=== PATIENT | female | born 1950 | race Caucasian/White ===

== ENCOUNTER → 2017-10-02 17:03 | Outpatient (CLI) | payer MEDICARE ==
[~2017-10-02 17:03] MED LIST: ASPIRIN EC81 M1 PO; CALCIUM/MG/ZINC PO; CENTRUM SILVER1 EAC3 PO; FISH OIL 1,0001 CA1 PO; HYDROCODONE-APA1 TAB PO; IBUPROFEN200 MG PO; POTASSIUM99 M1 PO; VITAMIN B COMPL1 TAB PO
[2017-10-23 06:38] VITALS: BMI 46.7
== END | disposition home or self-care (01) ==
LOC: D.MRI 17:03
DX: M25.561 Pain in right knee (principal)

== ENCOUNTER 2017-10-03 10:37 | Outpatient (CLI) | payer MEDICARE ==
[2017-10-03] MEDS ORDERED: ASPIRIN EC81 M1 PO (13:38)
[2017-10-03] MEDS ORDERED: CENTRUM SILVER1 EAC3 PO (13:39)
[2017-10-03] MEDS ORDERED: VITAMIN B COMPL1 TAB PO (13:39)
[2017-10-03 14:12] LABS: BASOPHILS 0.3 % (0-2); EOSINOPHILS 9.1 % (0-7); HEMATOCRIT 38.2 % (36.0-48.0); HEMOGLOBIN 12.7 g/dL (12-16); IMMATURE GRANULOCYTES 0.4 % (0-5); LYMPHOCYTES 27.3 % (15-50); MCH 29.3 pg (26.0-34.0); MCHC 33.2 g/dL (31.0-37.0); MCV 88.2 fL (80.0-100.0); MEAN PLATELET VOLUME 11.4 fL (7.4-10.4); MONOCYTES 6.8 % (2-11); NEUTROPHILS 56.1 % (40-80); PLATELET COUNT 203 10x3/uL (130-400); RBC 4.33 10x6/uL (4.00-5.40); RDW 14.2 % (11.5-14.5); WBC 12.6 10x3/uL (4.8-10.8)
[2017-10-03 14:23] LABS: ANION GAP 13.6 mmol/L (8-16); CALCIUM 8.4 mg/dL (8.5-10.1); CARBON DIOXIDE 22.2 mmol/L (21.0-32.0); CREATININE - SERUM 1.3 mg/dL (0.6-1.3); POTASSIUM - SERUM 3.8 mmol/L (3.5-5.1)
[2017-10-22] MEDS ORDERED: POTASSIUM99 M1 PO (10:22)
[2017-10-22] MEDS ORDERED: CALCIUM/MG/ZINC PO (10:23)
[2017-10-22] MEDS ORDERED: IBUPROFEN200 MG PO (10:24)
[2017-10-22] MEDS ORDERED: FISH OIL 1,0001 CA1 PO (10:24)
[2017-10-23 06:38] VITALS: BMI 46.7
== END 2017-10-03 10:38 | disposition home or self-care (01) ==
LOC: D.OPS 10:37 → EDSTATUS 10-04 09:00 → D.OPS 10-04 10:00
PROVIDERS: Surgery
DX: K80.80 Other cholelithiasis without obstruction (principal); Z01.810 Encounter for preprocedural cardiovascular examination; Z01.811 Encounter for preprocedural respiratory examination; Z01.812 Encounter for preprocedural laboratory examination; Z53.9 Procedure and treatment not carried out, unspecified reason

== ENCOUNTER 2017-10-23 06:05 | Day surgery (SDC) | payer MEDICARE ==
[2017-10-22 10:50] LABS: BASOPHILS 0.1 % (0-2); EOSINOPHILS 2.4 % (0-7); HEMATOCRIT 41.7 % (36.0-48.0); IMMATURE GRANULOCYTES 0.8 % (0-5); MCH 29.5 pg (26.0-34.0); MCHC 33.6 g/dL (31.0-37.0); MCV 87.8 fL (80.0-100.0); MEAN PLATELET VOLUME 11.1 fL (7.4-10.4); MONOCYTES 5.9 % (2-11); NEUTROPHILS 71.8 % (40-80); RBC 4.75 10x6/uL (4.00-5.40); RDW 14.1 % (11.5-14.5); WBC 17.9 10x3/uL (4.8-10.8)
[2017-10-22 10:51] LABS: PLATELET COUNT 267 10x3/uL (130-400)
[2017-10-22 10:59] LABS: ANION GAP 16.6 mmol/L (8-16); CALCIUM 8.6 mg/dL (8.5-10.1); CARBON DIOXIDE 20.3 mmol/L (21.0-32.0); CREATININE - SERUM 1.2 mg/dL (0.6-1.3); POTASSIUM - SERUM 3.9 mmol/L (3.5-5.1)
[~2017-10-23] VITALS: Ht 157.5 cm; Wt 115.7 kg
--- NOTE | ~2017-10-23 | OP ---
PATIENT NAME: LOPEZ MATT MEDICAL RECORD: [id number] :50 LOCATION:D.OPS ADMISSION DATE: SURGEON: NIMESH LEMONS MD DATE OF OPERATION: 10/23/2017 PREOPERATIVE DIAGNOSES: 1. Gallstones. 2. Asthma. 3. Morbid obesity. POSTOPERATIVE DIAGNOSES: 1. Gallstones. 2. Asthma. 3. Morbid obesity. PROCEDURE: Laparoscopic cholecystectomy. SURGEON: MD Marcia Bermudez was the trade sales assistant student on this case. REPORT OF PROCEDURE: The patient's abdomen was prepped and draped in sterile fashion. A cutdown was made on the superior aspect of the umbilicus and 0 Vicryls were placed on the fascia bilaterally and the fascia was incised with 15-blade. I then bluntly entered the peritoneal cavity and placed a 12-mm Yessenia port. Under direct visualization, a 5-mm trocar was placed in the epigastrium and 2 more 5-mm trocars were placed in the right subcostal region. There were no signs of any old scarring from a previous subcostal incision. The gallbladder was elevated and there were no signs of any acute inflammation. The cystic artery and cystic duct were dissected free. These were clipped proximally and distally and ligated in standard fashion. The gallbladder was taken off the liver bed using electrocautery and placed into the right upper quadrant. Any bleeding from the liver bed was then treated with electrocautery. At this point, the ports and insufflation were then removed and the gallbladder was taken out through the umbilicus. The umbilical fascia was closed with interrupted 0 Vicryls times 3. The wounds were irrigated out with normal saline and infused with 10 mL of 0.25% Marcaine with epinephrine. The skin incisions were all closed with subcutaneous 5-0 Monocryl and dressed appropriately. COMPLICATIONS: None. CONDITION: Stable. ANESTHESIA: General endotracheal and local. BLOOD LOSS: Minimal. TRANSINT:[id number] Voice Confirmation ID: [id number] DOCUMENT ID: [id number] OPERATIVE REPORT [id number] SHAKALOPEZNIMESH PARIS MD at 1418 CC: [id number] DICTATION DATE: 10/23/17 0858 SHED HAND: 10/23/17 0935 [facility] 10/23/17 [address] [id number] [place] [address]
[~2017-10-23 06:05] MED LIST changes: -HYDROCODONE-APA1 TAB PO
[2017-10-23 06:38] VITALS: BP 128/85; Ht 157.5 cm; Wt 115.7 kg
[2017-10-23] MEDS ORDERED: HYDROCODONE-APA1 TAB PO (08:53)
== END 2017-10-23 14:33 | disposition home or self-care (01) ==
LOC: D.OPS 06:05 → D.PAN 08:00 → D.OPS 08:45
PROVIDERS: Surgery
DX: K80.80 Other cholelithiasis without obstruction (principal); E66.01 Morbid (severe) obesity due to excess calories; Z68.42 Body mass index [BMI] 45.0-49.9, adult; J45.909 Unspecified asthma, uncomplicated

== ENCOUNTER → 2018-09-12 15:26 | Outpatient (CLI) | payer MEDICARE ==
[2017-10-23 06:38] VITALS: BMI 46.7
[~2018-09-12 15:26] MED LIST changes: +HYDROCODONE-APA1 TAB PO
== END | disposition home or self-care (01) ==
LOC: D.LABREF 15:26
PROVIDERS: ATTEND Orthopaedic Surgery
DX: M17.11 Unilateral primary osteoarthritis, right knee (principal); Z11.8 Encounter for screening for other infectious and parasitic diseases

== ENCOUNTER 2018-09-20 11:04 | Inpatient (IN) | payer MEDICARE ==
[~2018-09-20] VITALS: Ht 157.5 cm; Wt 106.8 kg
[2018-09-25 11:08] LABS: BASOPHILS 0.3 % (0-2); EOSINOPHILS 2.7 % (0-7); HEMATOCRIT 38.6 % (36.0-48.0); HEMOGLOBIN 12.7 g/dL (12-16); IMMATURE GRANULOCYTES 0.5 % (0-5); LYMPHOCYTES 23.2 % (15-50); MCH 29.2 pg (26.0-34.0); MCHC 32.9 g/dL (31.0-37.0); MCV 88.7 fL (80.0-100.0); MEAN PLATELET VOLUME 10.5 fL (7.4-10.4); MONOCYTES 6.9 % (2-11); NEUTROPHILS 66.4 % (40-80); PLATELET COUNT 263 10x3/uL (130-400); RBC 4.35 10x6/uL (4.00-5.40); RDW 13.9 % (11.5-14.5); WBC 12.8 10x3/uL (4.8-10.8)
[2018-09-25 11:17] LABS: ANION GAP 12.9 mmol/L (8-16); CALCIUM 8.5 mg/dL (8.5-10.1); CARBON DIOXIDE 23.4 mmol/L (21.0-32.0); CREATININE - SERUM 1.4 mg/dL (0.6-1.3); POTASSIUM - SERUM 4.3 mmol/L (3.5-5.1)
[2018-09-25 11:27] LABS: APTT 24.4 SECONDS (22.8-39.4); INR 1.07 (0.85-1.17); PROTIME 13.4 SECONDS (11.6-15.0)
[2018-09-25] MEDS ORDERED: PROTONIX40 MG PO (11:37)
[2018-09-25] MEDS ORDERED: MOBIC7.5 MG PO (11:37)
[2018-09-25] MEDS ORDERED: BENTYL 20 MG TA20 MG PO (11:38)
[2018-09-25] MEDS ORDERED: MAG-OX 400 MG400 MG PO (11:38)
[2018-09-25] MEDS ORDERED: VITAMIN D2000 UNIT PO (11:39)
[2018-09-25] MEDS ORDERED: TURMERIC CURCUMIN PO (11:40)
[2018-09-25] MEDS ORDERED: MERIBIN5 MG PO (11:40)
[2018-09-25] MEDS ORDERED: FOLIC ACID1 MG PO (11:40)
[2018-09-25 11:48] LABS: APPEARANCE CLEAR (CLEAR); COLOR DK YELLOW (YELLOW); GLUCOSE NEGATIVE (NEGATIVE); KETONE NEGATIVE (NEGATIVE); NITRITE NEGATIVE (NEGATIVE); PROTEIN NEGATIVE (NEGATIVE)
[2018-09-25 11:49] LABS: BACTERIA FEW /hpf (NONE SEEN); BILIRUBIN NEGATIVE (NEGATIVE); EPITHELIAL CELLS 0-5 /hpf (0-5); MUCUS <1+ /lpf (NONE SEEN); UROBILINOGEN NORMAL (NORMAL); WHITE CELLS - URINE 0-5 /hpf (0-5)
[2018-10-01] VITALS (12 sets, daily range): BP systolic 74–115; BP diastolic 49–79; Ht 157.5 cm; Wt 106.8 kg
--- NOTE | 2018-10-01 08:05 | NUR ---
PLASMA BLADE SET TO 6/8 BOVIE PAD RIGHT FLANK [id number] EXP 05/08/20
--- NOTE | 2018-10-01 12:00 | OP ---
PATIENT NAME: LOPEZ MATT MEDICAL RECORD: [id number] :50 LOCATION: D.2239 ADMISSION DATE:10/01/18 SURGEON: CLIFF MEJIA DO DATE OF OPERATION: 10/01/2018 PROCEDURE PERFORMED: Right total knee arthroplasty. PREOPERATIVE DIAGNOSIS: Severe right knee osteoarthritis. POSTOPERATIVE DIAGNOSIS: Severe right knee osteoarthritis. INDICATIONS: Ms. Matt is a 68-year-old female, who has been treated by me for a long time over the last 2 years with injections and trying to get this knee treated conservatively. She was tired of dealing with the pain and was ready to have a knee replacement. The injection stopped working sometime ago, and she is aware of the risks including infection, bleeding, damage to nerves, vessels, blood clots, and even and need for further surgery, fracture, and she signed the consent. SURGEON: Cliff Mejia DO I was assisted by Wilian Meyer, advanced nurse practitioner. He assisted with closing and holding retractors. This case could not have been performed without his assistance. DESCRIPTION OF PROCEDURE: The patient was given a block by anesthesia in preoperative area and taken to the operative suite, laid in supine position, given general anesthetic. The right lower extremity was prepped and draped in sterile fashion. A time-out was performed, everyone was in agreement with the correct side, site, patient, and procedure. Incision was then marked out and then covered with Ioban. Then incision began with a 10 blade scalpel down to the capsule. Fresh 10 blade was then used to the medial parapatellar approach. All bleeding was coagulated with the Aquamantys throughout the procedure. The patella was then everted. Part of the fat pad was removed and the patella was milled down to fit a 28 three-peg thin patella. The knee was then flexed up and then intramedullary canal was entered. The distal cutting block guide was then put in and the distal femur was cut. The tibia was then exposed and the tibia was cut as well. Once the tibia was cut, the menisci were removed. The knee was brought to an extension and any remaining menisci was cut and removed, and the posterior capsule and the estrada were coagulated with the Aquamantys. Then put in the extension block. The 14 extension block fit very well. The knee was then flexed up and the femur was sized to be a 60. The holes were drilled and the 4-in-1 cutting block was used. The femur was cut. The tibia was floated in and ranged. Rotation was marked. The patellar holes were then drilled through the guide as well as the lug holes for the femur and then the tibia was prepared. The 67 tray was used and drilled and punched. Then, the knee was thoroughly irrigated. Cement was mixed. Cement was placed on the tibial implant and in the tibia and the tibial tray was impacted into place. Excess cement was removed. The femur was press fitted on and then a 14 poly was put in between them for trial and the knee was brought to extension. The patella was then cleaned out and the 3-peg holes with curette and irrigation and the squeezer was put on when the cement was put in the holes and on the patella. This was held and the knee was irrigated until the cement had hardened and then excess cement was removed at that time. The trial then went to an 18. This fit very well and had good range of motion without sacrifice of stability, good OPERATIVE REPORT [id number] LOPEZ MATT medial and lateral stability, and good flexion and extension. An 18 poly deep dish was then placed and the locking mechanism was put into the tibial tray. The knee was then irrigated again and antibiotic powder of tobramycin and vancomycin was put in as well as Surgicel powder. The capsule was then closed with a few strands of #5 Ethibond and #2 Ethibond and #1 Vicryl in a [id number] fashion. This was then irrigated and the skin was closed with 2-0 Vicryl in an inverted interrupted fashion and the ZipLine placed on the knee for the skin closure. Adaptic, 4 x 4s, ABD, Webril and Art wrap were then placed on the knee. GISELLE hose stocking up to the knee. The patient was awakened and taken to recovery in stable condition. Blood loss was approximately 200 mL. Complications were none. TRANSINT:[id number] Voice Confirmation ID: [id number] DOCUMENT ID: [id number] CLIFF MEJIA DO at 1200 CC: JAVIER COOPER DO [id number] DICTATION DATE: 10/01/1804 ZOO KEEPER: 10/01/18 0948 ADM IN [facility] [address] [id number]
[2018-10-01 14:07] LABS: BASOPHILS 0.1 % (0-2); EOSINOPHILS 0.1 % (0-7); HEMOGLOBIN 11.7 g/dL (12-16); IMMATURE GRANULOCYTES 0.6 % (0-5); LYMPHOCYTES 6.7 % (15-50); MCH 28.7 pg (26.0-34.0); MCHC 32.5 g/dL (31.0-37.0); MCV 88.5 fL (80.0-100.0); MEAN PLATELET VOLUME 11.3 fL (7.4-10.4); MONOCYTES 2.7 % (2-11); NEUTROPHILS 89.8 % (40-80); PLATELET COUNT 221 10x3/uL (130-400); RBC 4.07 10x6/uL (4.00-5.40); RDW 13.8 % (11.5-14.5); WBC 17.3 10x3/uL (4.8-10.8)
[2018-10-01 14:18] LABS: ALBUMIN 2.9 g/dL (3.4-5.0); ANION GAP 14.3 mmol/L (8-16); BILIRUBIN - TOTAL 0.22 mg/dL (0.2-1.3); CALCIUM 8.3 mg/dL (8.5-10.1); CARBON DIOXIDE 22.8 mmol/L (21.0-32.0); CREATININE - SERUM 1.3 mg/dL (0.6-1.3); POTASSIUM - SERUM 5.1 mmol/L (3.5-5.1); PROTEIN - SERUM 6.4 g/dL (6.4-8.2)
[2018-10-02] VITALS: BP 99/51
[2018-10-02 04:00] VITALS: BP 90/55
[2018-10-02 06:51] LABS: BASOPHILS 0.2 % (0-2); EOSINOPHILS 0.6 % (0-7); HEMATOCRIT 34.6 % (36.0-48.0); HEMOGLOBIN 11.2 g/dL (12-16); IMMATURE GRANULOCYTES 0.4 % (0-5); LYMPHOCYTES 17.7 % (15-50); MCH 28.6 pg (26.0-34.0); MCHC 32.4 g/dL (31.0-37.0); MCV 88.5 fL (80.0-100.0); MEAN PLATELET VOLUME 11.2 fL (7.4-10.4); MONOCYTES 9.5 % (2-11); NEUTROPHILS 71.6 % (40-80); PLATELET COUNT 195 10x3/uL (130-400); RBC 3.91 10x6/uL (4.00-5.40); RDW 14.1 % (11.5-14.5)
[2018-10-02 06:58] LABS: ALBUMIN 2.8 g/dL (3.4-5.0); ANION GAP 14.6 mmol/L (8-16); BILIRUBIN - TOTAL 0.46 mg/dL (0.2-1.3); CALCIUM 7.9 mg/dL (8.5-10.1); CARBON DIOXIDE 22.5 mmol/L (21.0-32.0); CREATININE - SERUM 1.5 mg/dL (0.6-1.3); PROTEIN - SERUM 5.8 g/dL (6.4-8.2)
[2018-10-02 07:01] LABS: POTASSIUM - SERUM 4.1 mmol/L (3.5-5.1)
[2018-10-02 07:04] LABS: WBC 12.8 10x3/uL (4.8-10.8)
--- NOTE | 2018-10-02 07:30 | NUR ---
PT RESTING IN BED. NO ACUTE DISTRESS NOTED AT THIS TIME. IV TO LEFT FOREARM WITH NS @ 100ML/HR SITE WITHOUT REDNESS OR EDEMA. REPORTS PAIN 05/02 AT THIS TIME. DRESSING C/D/I TO RIGHT LOWER EXTREMITY. EXTREMITY WARM TO TOUCH. ABLE TO MOVE TOES. PULSES PALPABLE. DENIES FURTHER NEEDS AT THIS TIME. CL WITHIN REACH. ENCOURAGED TO CALL WITH NEEDS. CONTINUE POC
[2018-10-02 09:08] LABS: APPEARANCE CLEAR (CLEAR); BILIRUBIN NEGATIVE (NEGATIVE); COLOR YELLOW (YELLOW); GLUCOSE NEGATIVE (NEGATIVE); KETONE NEGATIVE (NEGATIVE); NITRITE NEGATIVE (NEGATIVE); PROTEIN NEGATIVE (NEGATIVE); SPECIFIC GRAVITY 1.015 (1.005-1.020); UROBILINOGEN NORMAL (NORMAL); WHITE CELLS - URINE OCC /hpf (0-5)
[2018-10-02 09:09] LABS: AMORPHOUS SEDIMENT <1+ /lpf (NONE SEEN); BACTERIA FEW /hpf (NONE SEEN); GRANULAR CAST 0-5 /lpf (NONE SEEN); MUCUS <1+ /lpf (NONE SEEN)
[2018-10-02 09:44] VITALS: BP 90/43
[2018-10-02 12:00] VITALS: BP 118/38
--- NOTE | 2018-10-02 14:24 | MORECARE ---
CASE MANAGEMENT DISCHARGE SUMMARY PATIENT: LOPEZ MATT UNIT: [id number] ADM DATE: 10/01/18 AGE: 68 : 50 SEX: F ROOM/BED: D.2239 AUTHOR: KARLA KUMAR PHYSICIAN: REFERRING PHYSICIAN: KAYLA MEJIA DO DATE OF SERVICE: 10/02/18 Discharge Plan Patient Name: LOPEZ MATT [facility] [facility] 1950 Planned Disposition: Home Anticipated Discharge Date: Discharge Date: Expected LOS: Initial Reviewer: [email or web address] Initial Review Date: 10/02/2018 Generated: 10/02/18 3:24 pm DCPIA - Discharge Planning Initial Assessment Updated by [email or web address]: Eileen Sawant on 10/02/18 2:20 pm * Is the patient Alert and Oriented? Yes * How many steps to enter\exit or inside your home? 1/0 * PCP Dr. Vasquez * Pharmacy [facility] * Preadmission Environment Home Alone * ADLs Independent * Equipment Bedside Commode Other Walker * Other Equipment CPM and Ice machine * List name and contact numbers for known caregivers / representatives who currently or will assist patient after discharge: Haja Matt - [facility] - [phone] * Verbal permission to speak to the caregivers and representatives has been obtained from the patient. Yes * Community resources currently utilized None * Additional services required to return to the preadmission environment? Yes * Can the patient safely return to the preadmission environment? Yes * Has this patient been hospitalized within the prior 30 days at any hospital? No External Providers External Provider: Rob Ordoñez PT Next Contact Date: Service Request Date: Service Type: Resolution: Reviewer: Comments: Patient Name: LOPEZ MATT Page 20492 at 1424 All edits/amendments must be made on the electronic document DICTATION DATE: 10/02/181423 BARREL BRANDER: YANELIS 10/02/181423 RPT#: [id number] DC DATE: STATUS: ADM IN [facility] [address] [place] [address] END OF REPORT
--- NOTE | 2018-10-02 14:32 | MORECARE ---
CASE MANAGEMENT DISCHARGE SUMMARY PATIENT: LOPEZ MATT UNIT: [id number] ADM DATE: 10/01/18 AGE: 68 : 50 SEX: F ROOM/BED: D.2239 AUTHOR: JOSÉ,DOC PHYSICIAN: REFERRING PHYSICIAN: KAYLA MEJIA DO DATE OF SERVICE: 10/02/18 Discharge Plan Patient Name: LOPEZ MATT Facility: [facility]:[place] : 1950 Planned Disposition: Home Anticipated Discharge Date: Discharge Date: Expected LOS: Initial Reviewer: [email or web address] Initial Review Date: 10/02/2018 Generated: 10/02/18 3:31 pm Comments DCP- Discharge Planning Updated by [email or web address]: Eileen Sawant on 10/02/18 1:[address] Patient Name: LOPEZ MATT Admission Status: Elective Accout number: [id number] Admission Date: 10-01-2018 : 1950 Admission Diagnosis: Attending: KAYLA MEJIA Current LOS: 1 Anticipated DC Date: Planned Disposition: Home Primary Insurance: [employer] CHOICE PPO [employer] Discharge Planning Comments: CM met with patient and her son (Haja) to discuss discharge planning/needs. Verbal permission received to discuss discharge planning with son in the room. She lives alone independently. Her son states he is going to stay with her "for awhile" and seems very involved in her care. He states he will be taking her to outpatient therapy at [facility] off of [facility]. He states the first visit is on Sunday at 10 am. States [employer] is to deliver BSC, walker, CPM and ice machine on Sunday. States they are to call if she is discharged sooner. I called Hannah at [facility] PT and they do have her scheduled for Sunday at 10. Clinical and order faxed to them per request to [phone]. CM will continue to follow and assist with discharge planning/needs. Penology Teacher: Eileen Sawant DCPIA - Discharge Planning Initial Assessment Updated by [email or web address]: Eileen Sawant on 10/02/18 2:20 pm * Is the patient Alert and Oriented? Yes * How many steps to enter\\exit or inside your home? 1/0 * PCP Dr. Vasquez * Pharm[facility] * Preadmission Environment Home Alone * ADLs Independent * Equipment Bedside Commode Other Walker * Other Equipment CPM and Ice machine * List name and contact numbers for known caregivers / representatives who currently or will assist patient after discharge: Haja Matt - [facility] - [phone] * Verbal permission to speak to the caregivers and representatives has been obtained from the patient. Yes * Community resources currently utilized None * Additional services required to return to the preadmission environment? Yes * Can the patient safely return to the preadmission environment? Yes * Has this patient been hospitalized within the prior 30 days at any hospital? No Last DP export: 10/02/18 1:24 p Patient Name: LOPEZ MATT Page [phone] at 1432 All edits/amendments must be made on the electronic document DICTATION DATE: 10/02/181430 TOOL CRIB CLERK: YANELIS 10/02/18 1431 RPT#: [id number] DC DATE: STATUS: ADM IN [facility] [address] [place] [address] END OF REPORT
[2018-10-02 18:35] VITALS: BP 95/51
[2018-10-02 20:00] VITALS: BP 104/52
--- NOTE | 2018-10-02 20:45 | NUR ---
UP TO BSC WITH ASSIST. RESP EVEN AND UNALBORED. GHULAM WRAP DRESSING INTACT TO RIGHT KNEE WITHOUT DRAINAGE NOTED. CL IN REACH. FAMILY AT BEDSIDE.
[2018-10-03] VITALS: BP 146/62
[2018-10-03 04:00] VITALS: BP 106/80
--- NOTE | 2018-10-03 04:17 | NUR ---
I have reviewed this patient and I concur with the Shift Assessment completed by the Licensed Practical Nurse today this shift.
[2018-10-03 05:08] LABS: BASOPHILS 0.2 % (0-2); EOSINOPHILS 1.5 % (0-7); HEMATOCRIT 30.4 % (36.0-48.0); HEMOGLOBIN 9.9 g/dL (12-16); IMMATURE GRANULOCYTES 0.5 % (0-5); LYMPHOCYTES 18.9 % (15-50); MCH 28.8 pg (26.0-34.0); MCHC 32.6 g/dL (31.0-37.0); MCV 88.4 fL (80.0-100.0); MEAN PLATELET VOLUME 10.9 fL (7.4-10.4); MONOCYTES 10.8 % (2-11); NEUTROPHILS 68.1 % (40-80); PLATELET COUNT 172 10x3/uL (130-400); RBC 3.44 10x6/uL (4.00-5.40); RDW 14.2 % (11.5-14.5); WBC 12.7 10x3/uL (4.8-10.8)
[2018-10-03 05:42] LABS: ALBUMIN 2.3 g/dL (3.4-5.0); ANION GAP 15.4 mmol/L (8-16); BILIRUBIN - TOTAL 0.46 mg/dL (0.2-1.3); CALCIUM 7.8 mg/dL (8.5-10.1); POTASSIUM - SERUM 4.4 mmol/L (3.5-5.1); PROTEIN - SERUM 5.6 g/dL (6.4-8.2)
[2018-10-03 05:45] LABS: CREATININE - SERUM 2.3 mg/dL (0.6-1.3)
--- NOTE | 2018-10-03 07:55 | NUR ---
PT SITTING UP IN BED. NO ACUTE DISTRESS NOTED. REPORTS PAIN 6/10 AT THIS TIME TO INCISIONAL SITE. EDUCATED WHEN NEXT DOSE DUE PER MD ORDERS. PT VOICES UNDERSTANDING. IV TO LEFT FOREARM WITH 1/2NS @ 100ML/HR INFUSING VIA PUMP. SITE WITHOUT REDNESS OR EDEMA. DRESSING C/D/I TO RIGHT LOWER EXTREMITY. CPM IN PLACE AT THIS TIME. DENIES FURTHER NEEDS AT THIS TIME. CL WITHIN REACH. ENCOURAGED TO CALL WITH NEEDS. CONTINUE POC
[2018-10-03 09:38] VITALS: BP 113/65
[2018-10-03 14:11] VITALS: BP 97/31
--- NOTE | 2018-10-03 15:32 | NUR ---
DRESSING CHANGE COMPLETED TO RIGHT LOWER EXT PER ORDERS. ZIPLINE SUTURES INTACT TO INCISION. EDGES WELL APPROXIMATED, WITHOUT REDNESS EDEMA OR DRAINAGE. APPLIED MEPILEX AG TO SITE WRAPPED WITH GHULAM WRAP. PT BRAD WELL.
[2018-10-03 17:56] VITALS: BP 98/50
[2018-10-03 21:08] VITALS: BP 121/55
--- NOTE | 2018-10-03 21:15 | NUR ---
AWAKE,ALERT.NO COMPALITNS VOICED. RESP EVEN AND UNALBORED. NO DISTRESS NOTED. GHULAM WRAP DRESSING INTACT TO RIGHT KNEE WITHOUT DRAINAGE NOTED. CL IN REACH.
[2018-10-04 04:58] VITALS: BP 114/58
[2018-10-04 06:14] LABS: BASOPHILS 0.2 % (0-2); EOSINOPHILS 3.8 % (0-7); HEMATOCRIT 29.5 % (36.0-48.0); HEMOGLOBIN 9.6 g/dL (12-16); IMMATURE GRANULOCYTES 0.5 % (0-5); LYMPHOCYTES 17.6 % (15-50); MCH 28.4 pg (26.0-34.0); MCHC 32.5 g/dL (31.0-37.0); MCV 87.3 fL (80.0-100.0); MEAN PLATELET VOLUME 11.1 fL (7.4-10.4); MONOCYTES 10.7 % (2-11); NEUTROPHILS 67.2 % (40-80); PLATELET COUNT 157 10x3/uL (130-400); RBC 3.38 10x6/uL (4.00-5.40); RDW 14.1 % (11.5-14.5); WBC 10.9 10x3/uL (4.8-10.8)
[2018-10-04 06:45] LABS: ALBUMIN 2.4 g/dL (3.4-5.0); ANION GAP 14.2 mmol/L (8-16); BILIRUBIN - TOTAL 0.52 mg/dL (0.2-1.3); CALCIUM 8.5 mg/dL (8.5-10.1); CARBON DIOXIDE 21.3 mmol/L (21.0-32.0); CREATININE - SERUM 2.3 mg/dL (0.6-1.3); POTASSIUM - SERUM 4.5 mmol/L (3.5-5.1); PROTEIN - SERUM 5.9 g/dL (6.4-8.2)
--- NOTE | 2018-10-04 07:30 | NUR ---
I have reviewed this patient and I concur with the Shift Assessment completed by the Licensed Practical Nurse today this shift.
--- NOTE | 2018-10-04 08:27 | NUR ---
AAOX4. ON ROOM AIR, CPM REMOVED AFTER 1 HOUR, C/O FEELING "CONFINED" AND "DON'T LIKE TO WEAR DURING MEALS" UNDERSTANDS THE PURPOSE OF THE MACHINE AND AGREES TO WEAR MACHINE THROUGHOUT THE DAY. IV TO LEFT FOREARM, PATENT INFUSING 1/2NS AT 100ML/HR, C/O DISCOMFORT TO IV SITE, SOME BRUISING AROUND SITE, PATENT, NO INFILTRATION, SLOWED INFUSING DOWN TO 50ML/HR. DENIES ANY OTHER CURRENT NEEDS OR DISCOMFORTS, BED LOWERED AND LOCKED, CALL LIGHT WITHIN REACH.
[2018-10-04 08:45] VITALS: BP 156/93
--- NOTE | 2018-10-04 10:04 | NUR ---
REQUESTED PRN PAIN MEDICATION FOR PAIN LEVEL 5/10 TO RIGHT KNEE. DENIES ANY OTHER NEEDS OR DISCOMFORTS, BED LOWERED AND LOCKED CALL LIGHT WITHIN REACH. CPOC
[2018-10-04 14:37] VITALS: BP 122/66
--- NOTE | 2018-10-04 15:57 | NUR ---
IV INFILTRATED TO LEFT FOREARM, DC'D WITH IV CATHTER TIP INTACT.
--- NOTE | 2018-10-04 16:07 | NUR ---
APPLIED ICE TO RIGHT KNEE, ADMINISTERED PRN PAIN MEDICATION PER ORDER. DENIES ANY OTHER NEEDS OR DISCOMFORTS, BED LOWERED AND LOCKED, CALL LIGHT WITHIN REACH. CPOC
[2018-10-04 18:03] VITALS: BP 120/72
--- NOTE | 2018-10-04 19:15 | NUR ---
RECEIVED CARE FROM DAY NURSE. LYING IN BED WITH CPM IN PLACE. CALL LIGHT AT SIDE. NO IV. REPORTS NO NEEDS AT THIS TIME.
--- NOTE | 2018-10-04 20:00 | NUR ---
GISELLE TO RIGHT LEG TAKEN OFF FOR NIGHT. WILL REPLACE AT END OF SHIFT.
[2018-10-04 21:22] VITALS: BP 126/58
--- NOTE | 2018-10-04 22:15 | NUR ---
IV SITED TO RIGHT FA. 22 GAUGE X4 STICKS WITH GOOD BLOOD RETURN NOTED.
[2018-10-05 05:14] VITALS: BP 115/61
[2018-10-05 06:24] LABS: BASOPHILS 0.2 % (0-2); EOSINOPHILS 5.3 % (0-7); HEMATOCRIT 29.5 % (36.0-48.0); HEMOGLOBIN 9.5 g/dL (12-16); IMMATURE GRANULOCYTES 0.6 % (0-5); LYMPHOCYTES 17.2 % (15-50); MCH 28.3 pg (26.0-34.0); MCHC 32.2 g/dL (31.0-37.0); MCV 87.8 fL (80.0-100.0); MEAN PLATELET VOLUME 11.2 fL (7.4-10.4); NEUTROPHILS 66.7 % (40-80); RBC 3.36 10x6/uL (4.00-5.40); RDW 14.3 % (11.5-14.5); WBC 10.1 10x3/uL (4.8-10.8)
[2018-10-05 06:31] LABS: PLATELET COUNT 199 10x3/uL (130-400)
--- NOTE | 2018-10-05 06:41 | NUR ---
I have reviewed this patient and I concur with the Shift Assessment completed by the Licensed Practical Nurse today this shift.
[2018-10-05 07:13] LABS: ALBUMIN 2.3 g/dL (3.4-5.0); ANION GAP 17.8 mmol/L (8-16); BILIRUBIN - TOTAL 0.45 mg/dL (0.2-1.3); CALCIUM 8.4 mg/dL (8.5-10.1); CARBON DIOXIDE 18.3 mmol/L (21.0-32.0); CREATININE - SERUM 2.3 mg/dL (0.6-1.3); POTASSIUM - SERUM 4.1 mmol/L (3.5-5.1); PROTEIN - SERUM 5.9 g/dL (6.4-8.2)
[2018-10-05 08:47] VITALS: BP 130/53
[2018-10-05 12:41] VITALS: BP 97/46
--- NOTE | 2018-10-05 13:42 | NUR ---
ADMINISTED PRN PAIN MEDICATION WITH ZANAFLEX PER ORDER, DENIES ANY OTHER NEEDS OR DISCOMFORTS, BED LOWERED AND LOCKED PAIN LEVEL 10/30
[2018-10-05 18:07] VITALS: BP 107/51
[2018-10-05 20:00] VITALS: BP 102/67
[2018-10-06] VITALS: BP 108/61
[2018-10-06 04:00] VITALS: BP 113/43
[2018-10-06 06:28] LABS: BASOPHILS 0.3 % (0-2); EOSINOPHILS 5.1 % (0-7); HEMATOCRIT 30.6 % (36.0-48.0); IMMATURE GRANULOCYTES 0.3 % (0-5); LYMPHOCYTES 21.2 % (15-50); MCH 28.6 pg (26.0-34.0); MCHC 32.7 g/dL (31.0-37.0); MCV 87.4 fL (80.0-100.0); MEAN PLATELET VOLUME 10.8 fL (7.4-10.4); MONOCYTES 8.7 % (2-11); NEUTROPHILS 64.4 % (40-80); PLATELET COUNT 206 10x3/uL (130-400); RDW 14.1 % (11.5-14.5)
[2018-10-06 07:20] LABS: ALBUMIN 2.3 g/dL (3.4-5.0); ANION GAP 18.1 mmol/L (8-16); BILIRUBIN - TOTAL 0.49 mg/dL (0.2-1.3); CALCIUM 8.5 mg/dL (8.5-10.1); CARBON DIOXIDE 15.9 mmol/L (21.0-32.0); CREATININE - SERUM 2.2 mg/dL (0.6-1.3); PROTEIN - SERUM 6.1 g/dL (6.4-8.2)
--- NOTE | 2018-10-06 08:44 | NUR ---
AAOX4. EVEN UNLABORED BREATHING ON ROOM AIR, IV INFILITRATED, DISCONTINUED, CATHETER TIP INTACT, DRESSING RIGHT KNEE, C/D/I, DENIES ANY OTHER NEEDS DISCOMFORTS, BED LOWERED AND LOCKED, CALL LIGHT WITHIN REACH. CPOC
[2018-10-06 08:49] VITALS: BP 104/62
--- NOTE | 2018-10-06 09:15 | NUR ---
BUTTOCKS AREA, RED, BLANCHABLE, APPLIED SKIN BARRIER CREAM APPLIED, INSTRUCTED TO ROTATE FREQUENTLY TO RELIEF PRESSURE OFF AREA, INFORMED HER WE WILL ASSIST HER IN FINDING A COMFORTABLE POSITION. PRN PAIN MEDICATION ADMINISTERED FOR PAIN LEVEL 6/10 FOR PAIN IN RIGHT KNEE AND LOWER BACK, BED LOWERED AND LOCKED, CALL LIGHT WITHIN REACH. CPOC
[2018-10-06 12:39] VITALS: BP 114/46
[2018-10-06 17:55] VITALS: BP 130/68
--- NOTE | 2018-10-06 18:53 | NUR ---
AAOX4 ON ROOM AIR, DRESSING TO RIGHT KNEE C/D/I, IV TO LEFT FOREARM PATENT, INFUSING SODIUM BICARB WITH HALF NS, USES WALKER, DENIES ANY CURRENT NEEDS OR DISCOMFORTS, BED LOWERED AND LOCKED, CALL LIGHT WITHIN REACH. CPOC
[2018-10-06 20:00] VITALS: BP 106/63
[2018-10-07] VITALS: BP 110/68
[2018-10-07 04:00] VITALS: BP 102/48
[2018-10-07 04:18] VITALS: BP 123/52
[2018-10-07 05:31] LABS: BASOPHILS 0.3 % (0-2); EOSINOPHILS 4.9 % (0-7); HEMATOCRIT 29.3 % (36.0-48.0); HEMOGLOBIN 9.5 g/dL (12-16); IMMATURE GRANULOCYTES 0.5 % (0-5); LYMPHOCYTES 23.1 % (15-50); MCH 28.1 pg (26.0-34.0); MCHC 32.4 g/dL (31.0-37.0); MCV 86.7 fL (80.0-100.0); MEAN PLATELET VOLUME 10.4 fL (7.4-10.4); MONOCYTES 7.4 % (2-11); NEUTROPHILS 63.8 % (40-80); PLATELET COUNT 233 10x3/uL (130-400); RBC 3.38 10x6/uL (4.00-5.40); RDW 14.1 % (11.5-14.5)
[2018-10-07 06:00] LABS: ALBUMIN 2.2 g/dL (3.4-5.0); ANION GAP 12.8 mmol/L (8-16); BILIRUBIN - TOTAL 0.37 mg/dL (0.2-1.3); CALCIUM 7.8 mg/dL (8.5-10.1); CREATININE - SERUM 2.1 mg/dL (0.6-1.3); POTASSIUM - SERUM 3.7 mmol/L (3.5-5.1); PROTEIN - SERUM 5.8 g/dL (6.4-8.2)
[2018-10-07 06:09] LABS: CARBON DIOXIDE 25.9 mmol/L (21.0-32.0)
--- NOTE | 2018-10-07 07:15 | NUR ---
REC'D IN BED AWAKE AND ALERT SITTIING ON SIDE OF BED AWAKE AND ALERT. RESP EVEN AND UNLABORED WITH NO DISTRESS NOTED. CAN EXPRESS NEEDS AND WANTS WITH NO NOTED OR VOICED. ASSESSMENT COMPLETED. C/L IN REACH AT BEDSIDE.
--- NOTE | 2018-10-07 07:33 | NUR ---
iv out resited to right hand 22g with 2 atempts.
[2018-10-07 08:16] VITALS: BP 105/47
[2018-10-07] MEDS ORDERED: ELIQUIS2.5 MG PO (08:49)
[2018-10-07] MEDS ORDERED: OXYCODONE HCL5 M1 PO (08:50)
[2018-10-07] MEDS ORDERED: KEFLEX500 MG PO (08:51)
[2018-10-07] MEDS ORDERED: VISTARIL50 MG PO (08:51)
--- NOTE | 2018-10-07 09:37 | MORECARE ---
CASE MANAGEMENT DISCHARGE SUMMARY PATIENT: LOPEZ MATT UNIT: [id number] ADM DATE: 10/01/18 AGE: 68 : 50 SEX: F ROOM/BED: D.2239 AUTHOR: KARLA KUMAR PHYSICIAN: REFERRING PHYSICIAN: KAYLA MEJIA DO DATE OF SERVICE: 10/07/18 Discharge Plan Patient Name: LOPEZ MATT Facility: [facility]:[place] : 1950 Planned Disposition: Home Anticipated Discharge Date: Discharge Date: Expected LOS: Initial Reviewer: [email or web address] Initial Review Date: 10/02/2018 Generated: 10/07/18 10:37 am Comments DCP- Discharge Planning Updated by [email or web address]: Alycia Villegas on 10/07/18 8:[address] Patient Name: LOPEZ MATT Admission Status: Elective Accout number: [id number] Admission Date: 10-01-2018 : 1950 Admission Diagnosis:UNILATERAL PRIMARY OSTEOARTHRITIS, RIGHT KNEE Attending: KAYLA MEJIA Current LOS: 6 Anticipated DC Date: Planned Disposition: Home Primary Insurance: [employer] CHOICE PPO [facility] Discharge Planning Comments: PATIENT DISCHARGING TODAY. CM CALLED [facility] AT [phone] AND SCHEDULED PT APPOINTMENT FOR SUNDAY AT 10AM. CM TO FOLLOW AND ASSIST NEEDED. Knitting Demonstrator: Alycia Villegas DCP- Discharge Planning Updated by [email or web address]: Eileen Sawant on 10/02/18 1:[address] Patient Name: LOPEZ MATT Admission Status: Elective Accout number: [id number] Admission Date: 10-01-2018 : 1950 Admission Diagnosis: Attending: KAYLA MEJIA Current LOS: 1 Anticipated DC Date: Planned Disposition: Home Primary Insurance: [employer] CHOICE PPO [facility] Discharge Planning Comments: CM met with patient and her son (Haja) to discuss discharge planning/needs. Verbal permission received to discuss discharge planning with son in the room. She lives alone independently. Her son states he is going to stay with her "for awhile" and seems very involved in her care. He states he will be taking her to outpatient therapy at [facility] off of [facility]. He states the first visit is on Sunday at 10 am. States [employer] is to deliver BSC, walker, CPM and ice machine on Sunday. States they are to call if she is discharged sooner. I called Hannah at [facility] PT and they do have her scheduled for Sunday at 10. Clinical and order faxed to them per request to [phone]. CM will continue to follow and assist with discharge planning/needs. Knitting Demonstrator: Eileen Sawant DCPIA - Discharge Planning Initial Assessment Updated by [email or web address]: Eileen Sawant on 10/02/18 2:20 pm * Is the patient Alert and Oriented? Yes * How many steps to enter\\exit or inside your home? 1/0 * PCP Dr. Vasquez * Pharmacy [facility] * Preadmission Environment Home Alone * ADLs Independent * Equipment Bedside Commode Other Walker * Other Equipment CPM and Ice machine * List name and contact numbers for known caregivers / representatives who currently or will assist patient after discharge: Haja Matt - son - [phone] * Verbal permission to speak to the caregivers and representatives has been obtained from the patient. Yes * Community resources currently utilized None * Additional services required to return to the preadmission environment? Yes * Can the patient safely return to the preadmission environment? Yes * Has this patient been hospitalized within the prior 30 days at any hospital? No Last DP export: 10/02/18 1:32 p Patient Name: LOPEZ MATT Page 12377 at 0937 All edits/amendments must be made on the electronic document DICTATION DATE: 10/07/18935 BROODMARE BARN GROOM: YANELIS 10/07/18935 RPT#: [id number] DC DATE: STATUS: ADM IN [facility] [address] [place] [address] END OF REPORT
--- NOTE | 2018-10-07 11:18 | NUR ---
DC HOME AT THIS TIME VOICE UNDERSTANDING OF DC ORDERS.IV DC. IN STABLE CONDITION UPON DEPARTURE.
--- NOTE | 2018-10-07 15:37 | MORECARE ---
CASE MANAGEMENT DISCHARGE SUMMARY PATIENT: LOPEZ MATT UNIT: [id number] ADM DATE: 10/01/18 AGE: 68 : 50 SEX: F ROOM/BED: D.2239 AUTHOR: JOSÉ,KARLA PHYSICIAN: REFERRING PHYSICIAN: KAYLA MEJIA DO DATE OF SERVICE: 10/07/18 Discharge Plan Patient Name: LOPEZ MATT Facility: [facility]:[place] : 1950 Planned Disposition: Home Anticipated Discharge Date: Discharge Date: 10/07/2018 Expected LOS: Initial Reviewer: [id number] Initial Review Date: 10/02/2018 Generated: 10/07/18 4:37 pm Comments DCP- Discharge Planning Updated by [email or web address]: Alycia Villegas on 10/07/18 8:[address] Patient Name: LOPEZ MATT Admission Status: Elective Accout number: [id number] Admission Date: 10-01-2018 : 1950 Admission Diagnosis:UNILATERAL PRIMARY OSTEOARTHRITIS, RIGHT KNEE Attending: KAYLA MEJIA Current LOS: 6 Anticipated DC Date: Planned Disposition: Home Primary Insurance: [employer] CHO[employer] PPO [facility] Discharge Planning Comments: PATIENT DISCHARGING TODAY. CM CALLED [facility] AT [phone] AND SCHEDULED PT APPOINTMENT FOR SUNDAY AT 10AM. CM TO FOLLOW AND ASSIST NEEDED. Auto Parts Manager: Alycia Villegas DCP- Discharge Planning Updated by [email or web address]: Eileen Sawant on 10/02/18 1:[address] Patient Name: LOPEZ MATT Admission Status: Elective Accout number: [id number] Admission Date: 10-01-2018 : 1950 Admission Diagnosis: Attending: KAYLA MEJIA Current LOS: 1 Anticipated DC Date: Planned Disposition: Home Primary Insurance: [employer] CHOICE PPO [facility] [employer] Discharge Planning Comments: CM met with patient and her son (Haja) to discuss discharge planning/needs. Verbal permission received to discuss discharge planning with son in the room. She lives alone independently. Her son states he is going to stay with her "for awhile" and seems very involved in her care. He states he will be taking her to outpatient therapy at [facility] off of [facility]. He states the first visit is on Sunday at 10 am. States [employer] is to deliver BSC, walker, CPM and ice machine on Sunday. States they are to call if she is discharged sooner. I called Hannah at [facility] and they do have her scheduled for Sunday at 10. Clinical and order faxed to them per request to [phone]. CM will continue to follow and assist with discharge planning/needs. Auto [employer] Manager: Eileen Sawant DCPIA - Discharge Planning Initial Assessment Updated by [email or web address]: Eileen Sawant on 10/02/18 2:20 pm * Is the patient Alert and Oriented? Yes * How many steps to enter\\exit or inside your home? 1/0 * PCP Dr. Vasquez * Pharmacy [facility] * Preadmission Environment Home Alone * ADLs Independent * Equipment Bedside Commode Other Walker * Other Equipment CPM and Ice machine * List name and contact numbers for known caregivers / representatives who currently or will assist patient after discharge: Haja Matt - son - [phone] * Verbal permission to speak to the caregivers and representatives has been obtained from the patient. Yes * Community resources currently utilized None * Additional services required to return to the preadmission environment? Yes * Can the patient safely return to the preadmission environment? Yes * Has this patient been hospitalized within the prior 30 days at any hospital? No Coverage Notice Reviewer: [id number] Benitez Villegas Notice Issued Date-Time: 10/07/2018 9:51 Notice Type: IM Discharge Notice Notice Delivered To: Patient Relationship to Patient: Information Systems Security Specialist Name: Delivery Method: HAND - Hand Delivered Shari Days: Prior Verbal Notification: Recipient Understood Notice: Yes Recipient Signature: Yes Med Rec Note Co-signed by Attending: Coverage Notice Comment: Last DP export: 10/07/18 8:37 a Patient Name: LOPEZ MATT Page [id number] at [id number] All edits/amendments must be made on the electronic document DICTATION DATE: 10/07/181535 MULE DEVELOPER: YANELIS 10/07/181535 RPT#: [id number] DC DATE:10/07/18 STATUS: DIS IN [facility] [address] [place] [address] END OF REPORT
== END 2018-10-07 11:19 | disposition home or self-care (01) | DRG 469 ==
LOC: D.MS 10-01 05:00 → D.SDCHOLD 10-01 05:00 → D.MS 10-01 10:04
PROVIDERS: Family Medicine; ADMIT Orthopaedic Surgery; ATTEND Orthopaedic Surgery
PROC: 0SRC0J9 Replacement of Right Knee Joint with Synthetic Substitute, Cemented, Open Approach (ICD-10-PCS; principal; 2018-10-01 07:00)
DX: M17.11 Unilateral primary osteoarthritis, right knee (principal); N17.0 Acute kidney failure with tubular necrosis; Z68.41 Body mass index [BMI] 40.0-44.9, adult; D62 Acute posthemorrhagic anemia; N39.0 Urinary tract infection, site not specified; E66.01 Morbid (severe) obesity due to excess calories; K21.9 Gastro-esophageal reflux disease without esophagitis; I95.81 Postprocedural hypotension